=== PATIENT | female | born 1955 | race Caucasian/White ===

== ENCOUNTER 2022-01-23 13:57 | Outpatient (CLI) | payer MEDICARE, SELFPAY | END 2022-01-23 13:58 | disposition home or self-care (01) | LOC: LKVREF 13:58 | PROVIDERS: PCP Physician Assistant Medical; Visit Provider Student in an Organized Health Care Education/Training Program | DX: R30.0 Dysuria (principal); N39.0 Urinary tract infection, site not specified | CPT/HCPCS: 87086; 87186 ==

== ENCOUNTER 2022-04-13 11:37 | Outpatient (CLI) | payer MEDICARE, SELFPAY ==
--- NOTE | 2022-04-13 13:17 | W.ANESCHARGE ---
Anesthesia Charges Start Date/Time Anesthesia Start Date: 04/13/22 Anesthesia Start Time: 12:38 Stop Date/Time Anesthesia Stop Date: 04/13/22 Anesthesia Stop Time: 13:09 Summary Emergency: No
--- NOTE | 2022-04-13 13:27 | W.ANESCHARGE ---
Anesthesia Charges Start Date/Time Anesthesia Start Date: 04/13/22 Anesthesia Start Time: 12:38 Stop Date/Time Anesthesia Stop Date: 04/13/22 Anesthesia Stop Time: 13:09 Summary Emergency: No
== END 2022-04-13 11:38 | disposition home or self-care (01) ==
LOC: OP CLINIC 11:38
PROVIDERS: PCP Physician Assistant Medical; Visit Provider Surgery
DX: Z12.11 Encounter for screening for malignant neoplasm of colon (principal); K63.5 Polyp of colon; K57.30 Diverticulosis of large intestine without perforation or abscess without bleeding; K64.4 Residual hemorrhoidal skin tags; Z86.010 Personal history of colon polyps
CPT/HCPCS: 00811; 45385; J2704

== ENCOUNTER 2022-09-29 08:29 | Outpatient (CLI) | payer MEDICARE, SELFPAY | END 2022-09-29 08:30 | disposition home or self-care (01) | LOC: NFLDREF 09-30 09:07 | PROVIDERS: PCP Physician Assistant Medical; Referring Provider Physician Assistant Medical; Visit Provider Physician Assistant Medical | DX: I10 Essential (primary) hypertension (principal); E78.5 Hyperlipidemia, unspecified; M85.80 Other specified disorders of bone density and structure, unspecified site | CPT/HCPCS: 80053; 80061; 84443 ==

== ENCOUNTER 2023-08-06 09:09 | Outpatient (CLI) | payer MEDICARE, SELFPAY | END 2023-08-06 09:10 | disposition home or self-care (01) | PROVIDERS: PCP Physician Assistant Medical; Visit Provider Physician Assistant Medical | DX: I10 Essential (primary) hypertension (principal); E78.5 Hyperlipidemia, unspecified; R53.83 Other fatigue; Z79.899 Other long term (current) drug therapy | CPT/HCPCS: 80053; 80061; 82306; 82607; 82728; 84443 ==

== ENCOUNTER 2023-10-26 12:17 | Outpatient (CLI) | payer MEDICARE, SELFPAY ==
--- NOTE | 2023-10-26 13:00 | XR_ITS ---
Patient: SHAN MALAVE Facility:?[facility] Patient ID:?[id number] Site Patient ID:?[id number]. Site :?[id number] Study:?DEXA-Bone Density SPINE/HIPS-10/26/2023 2:13:25 PM Ordering Physician:TIFFANIE MALAGON Final Report: DXA BONE MINERAL DENSITY STUDY Reason for exam: Asymptomatic menopausal state. Current height (in): 67. Weight (lb): 157. Menopause age: 48. Ethnicity: White. 1. Have you had a previous hip or vertebral fracture? No. 2. Have you had any fractures during your adult life which did not result from significant trauma (e.g., auto accident)? Yes. 3. Did either of your parents have a hip fracture? No. 4. Do you smoke? No. 5. Have you ever taken Glucocorticoids? No. 6. Do you have rheumatoid arthritis? No. 7. Do you have secondary osteoporosis? No. 8. Do you drink 3 or more alcoholic drinks per day? No. 9. Are you being treated for osteoporosis? No. 10. Have you ever taken any of the following medications: Actonel, Evista, Fosamax, Miacalcin, Reclast, Boniva, Forteo, HRT (i.e. estrogen/hormone therapy), Protelos, Prolia, Vitamin D, Calcium, other ? please specify. ANSWER: Yes, vitamin D and calcium. 11. Do you have any of the following medical conditions: Anorexia or bulimia, asthma or emphysema, end stage renal disease, hyperparathyroidism, any seizure disorders, cancer, inflammatory bowel diseases, hysterectomy, other ? please specify. ANSWER: No. 12. What was your maximum height (inches)? 68. 13. Do you perform weight bearing exercise regularly? Yes. 14. Do you regularly consume dairy products? Yes. 15. Do you drink caffeinated beverages? Yes. 6. At what age did your period start? 13. 17. Are you premenopausal? No. 18. How many full term pregnancies have you had? 4. 19. Have you ever missed your period for more than 6 months in a row (not including or menopause)? No. TECHNIQUE: Bone mineral density study was performed using the [employer]. FINDINGS: The results of the study expressed as bone mineral density (BMD) are as follows: Lumbar spine L1 to L4: BMD: 0.899 g/cm2. T-score: -1.3. Z-score: 0.6. Neck Left: BMD: 0.677 g/cm2. T-score: -1.6. Z-score: 0.1. Right: BMD: 0.690 g/cm2. T-score: -1.4. Z-score: 0.3. Total Left: BMD: 0.781 g/cm2. T-score: -1.3. Z-score: 0.1. Right: BMD: 0.791 g/cm2. T-score: -1.2. Z-score: 0.2. IMPRESSION: Osteopenia. *Comparison exams done prior to 11/2019 were performed on different unit, [employer]. COMPARISON: Compared with scan of 09/03/2021, the bone mineral density has increased by 1.7 percent at the spine and decreased by 4.4 percent at the hip. FRAX 10-year Fracture Risk Major Osteoporotic Fracture: 16 percent Hip Fracture: 2.0 percent Reported Risk Factors: [place] () Neck BMD=0.677, BMI=24.6, previous fracture. Amadou Childs M.D. [email or web address] DONNA:harry D& Transcribed: 5:29 p.mHenrik DE LA TORRE/Dictated by: Amadou Childs MD @ 10/27/2023 2:54:00 PM Signed by:Alexander Childs MD @10/28/2023 7:38:19 AM (Electronic Signature)
--- NOTE | 2023-10-26 13:40 | MM_ITS ---
Patient: SHAN MALAVE Facility:?[facility] Patient ID:?[id number] Site Patient ID:?[id number] Site :?[id number] Study:?XRay-Breast Bilateral 3D screening mammogram w/cad-10/26/2023 2:21:44 PM Ordering Physician:VESNA Final Report: BILATERAL SCREENING MAMMOGRAM WITH COMPUTER-AIDED DETECTION AND TOMOSYNTHESIS TECHNIQUE: CC and MLO views were obtained. These mammographic images have been obtained using full-field digital technique. These mammographic images were interpreted with the benefit of computer-aided detection. Breast Tomosynthesis was used in this interpretation. COMPARISON FILM: 09/03/21, 11/30/18, 01/26/17. FINDINGS: There are scattered areas of fibroglandular density IMPRESSION: There is no radiographic evidence for malignancy. ASSESSMENT: BI-RADS Category 2: Benign RECOMMENDATION: Routine screening mammogram in 1 year. A lay language report of this examination will be provided to the patient. Prosper Matson M.D. Diagnostic Radiologist [email or web address] GIL/montse R& Transcribed: 8:10 p.m. LISA/Dictated by: Prosper Matson MD @ 10/28/2023 12:50:00 PM Signed by:?Prosper Matson MD @10/28/2023 8:29:53 PM (Electronic Signature)
== END 2023-10-26 12:18 | disposition home or self-care (01) ==
LOC: RAD 12:17
PROVIDERS: PCP Physician Assistant Medical; Visit Provider Physician Assistant Medical
DX: Z12.31 Encounter for screening mammogram for malignant neoplasm of breast (principal); Z78.0 Asymptomatic menopausal state; M85.89 Other specified disorders of bone density and structure, multiple sites
CPT/HCPCS: 77063; 77067; 77080

== ENCOUNTER 2024-10-26 08:37 | Outpatient (CLI) | payer MEDICARE, SELFPAY | END 2024-10-26 08:38 | disposition home or self-care (01) | LOC: NFLDREF 11-05 18:07 | PROVIDERS: PCP Physician Assistant Medical; Referring Provider Physician Assistant Medical; Visit Provider Physician Assistant Medical | DX: Z00.01 Encounter for general adult medical examination with abnormal findings (principal); E78.2 Mixed hyperlipidemia; I10 Essential (primary) hypertension; F32.4 Major depressive disorder, single episode, in partial remission | CPT/HCPCS: 80053; 80061; 84443 ==